=== PATIENT | female | born 1990 | race Caucasian/White ===

== ENCOUNTER → 2017-10-08 | Outpatient (CLI) | payer OTHER | LOC: BMCIMAGING 16:17 | PROVIDERS: ATTEND Physician Assistant | DX: M25.562 Pain in left knee (principal) ==

== ENCOUNTER → 2017-11-25 | Outpatient (CLI) | payer OTHER, MEDICAID | LOC: FIMAGING 07:04 | PROVIDERS: ATTEND Orthopaedic Surgery | DX: S83.32XA Tear of articular cartilage of left knee, current, initial encounter (principal) ==

== ENCOUNTER → 2018-11-04 | Outpatient (CLI) | payer OTHER, MEDICAID | LOC: FIMAGING 17:53 | PROVIDERS: ATTEND Orthopaedic Surgery Hand Surgery | DX: M25.562 Pain in left knee (principal); M25.462 Effusion, left knee ==